=== PATIENT | female | born 1995 | race Caucasian/White ===

== ENCOUNTER 2017-03-03 13:39 | Emergency (ER) | payer OTHER ==
[2017-03-03 13:45] VITALS: RESP 16
--- NOTE | 2017-03-03 14:02 | EDPHY ---
H & P Time Seen by Provider: 03/03/17 14:01 HPI/ROS: Chief complaint. Abdominal pain HPI. 21-year-old female presents emergency department the with low abdominal pain. She has had increased painful menses for the last 9 months after going off control pills approximately 1 and half years ago. She has had 2 3 weeks of low abdominal cramping. Her menses started today with increased pain. Normal vaginal bleeding for her 1st day of menstrual. No fever or vomiting. Possible urinary symptoms. Scheduled for pelvic ultrasound next week ROS Constitutional. no fever/chills, no weakness Eyes. no problems with vision ENT. no sore throat, no nasal drainage Cardiovascular. no chest pain Respiratory. no shortness of breath, no cough Abdominal. Crampy low abdominal pain. . Possible urinary tract infection symptoms MS. no calf pain/swelling, no neck/back pain, no joint pain Skin. no rash Lymph. no swollen glands Neuro. no headache, no dizziness, no difficulty walking or with speech Past Medical/Surgical History: For migraines Social History: Single, nonsmoker, no alcohol Smoking Status: Never smoked Physical Exam: General Appearance: Alert well-developed female mild distress vital signs are stable Eyes: Pupils equal and round no pallor or injection. ENT, Mouth: Mucous membranes are moist. Respiratory: There are no retractions, lungs are clear to auscultation. Cardiovascular: Regular rate and rhythm. Gastrointestinal: Abdomen is soft with diffuse and bilateral tenderness in the suprapubic and adnexal area. No pain at McBurney's point. No masses. No organomegaly Neurological: Awake and alert, sensory and motor exams grossly normal. Skin: Warm and dry, no rashes. Musculoskeletal: Neck is supple nontender. Extremities symmetrical, full range of motion. Psychiatric: Patient is oriented X 3, there is no agitation. Constitutional: Initial Vital Signs Temperature (C) 37.0 C 03/03/17 13:42 Heart Rate 67 03/03/17 13:42 Respiratory Rate 16 03/03/17 13:42 Blood Pressure 114/73 03/03/17 13:42 O2 Sat (%) 100 03/03/17 13:42 O2 Delivery Mode Room Air Allergies/Adverse Reactions: penicillin G Allergy (Verified 03/03/17 13:41) Home Medications: Medication Instructions Recorded Hydrocodone/APAP 5/325 [[place] 1 each PO Q4-6PRN PRN #14 tab 03/03/17 5/325 (*)] Medical Decision Making - Diagnostics Imaging Results: Imaging Impressions Pelvic/Renal Ultrasound 03/03/17 14:12 Impression: 1. Small cystic areas within the endometrial stripe in the lower uterine segment to cervix that could be related to small polyps versus possibility of endometrial hyperplasia along with adjacent nabothian cyst. 2. Normal-appearing ovaries. Pelvic ultrasound essentially normal. Reviewed by me and discussed with Dr. Hernandez. Above findings of a small cystic areas of unclear significance Procedures: IV normal saline. Fentanyl and Toradol for discomfort ED Course/Re-evaluation: Re-evaluation 5:00 p.m.. Patient and I discussed imaging and lab results. We discussed treatment plan including criteria for return importance of follow-up further evaluation. She expresses understanding and agreement Patient is stable and feeling better Differential Diagnosis: I considered , ovarian cyst, endometriosis, urinary tract infection - Data Points Laboratory Results: Laboratory Results 03/03/17 14:30 03/03/17 14:30 03/03/17 03/03/17 03/03/17 15:06 14:30 14:30 WBC RBC Hgb Hct MCV MCH MCHC RDW Plt Count MPV Neut % (Auto) Lymph % (Auto) [place] % (Auto) Eos % (Auto) Baso % (Auto) Nucleat RBC Rel Count Absolute Neuts (auto) Absolute Lymphs (auto) Absolute Monos (auto) Absolute Eos (auto) Absolute Basos (auto) Absolute Nucleated RBC Immature Gran % Immature Gran # Sodium 143 mEq/L mEq/L (135-145) Potassium 3.8 mEq/L mEq/L (3.5-5.2) Chloride 105 mEq/L mEq/L (97-110) Carbon Dioxide 26 mEq/l mEq/l (22-31) Anion Gap 12 mEq/L mEq/L (8-16) BUN 13 mg/dL mg/dL (7-23) Creatinine 0.7 mg/dL mg/dL (0.6-1.0) Estimated GFR > 60 Glucose 95 mg/dL mg/dL (70-100) Calcium 9.5 mg/dL mg/dL (8.5-10.4) Beta HCG, Qual NEGATIVE Urine Color YELLOW Urine Appearance CLEAR Urine pH 6.0 (5.0-7.5) Ur Specific [place] 1.019 (1.002-1.030) Urine Protein NEGATIVE (NEGATIVE) Urine Ketones TRACE H (NEGATIVE) Urine Blood 2+ H (NEGATIVE) Urine Nitrate NEGATIVE (NEGATIVE) Urine Bilirubin NEGATIVE (NEGATIVE) Urine Urobilinogen NEGATIVE EU EU (0.2-1.0) Ur Leukocyte Esterase NEGATIVE (NEGATIVE) Urine RBC 1-3 /hpf /hpf (0-3) Urine WBC 1-3 /hpf /hpf (0-3) Ur Epithelial Cells TRACE /lpf /lpf (NONE-1+) Urine Mucus TRACE /lpf /lpf (NONE-1+) Urine Glucose NEGATIVE (NEGATIVE) 03/03/17 14:30 WBC 9.41 10^3/uL 10^3/uL (3.80-9.50) RBC 4.29 10^6/uL 10^6/uL (4.18-5.33) Hgb 13.9 g/dL g/dL (12.6-16.3) Hct 41.0 % % (38.0-47.0) MCV 95.6 fL fL (81.5-99.8) MCH 32.4 pg pg (27.9-34.1) MCHC 33.9 g/dL g/dL (32.4-36.7) RDW 12.3 % % (11.5-15.2) Plt Count 286 10^3/uL 10^3/uL (150-400) MPV 9.6 fL fL (8.7-11.7) Neut % (Auto) 73.3 % % (39.3-74.2) Lymph % (Auto) 19.4 % % (15.0-45.0) [place] % (Auto) 6.0 % % (4.5-13.0) Eos % (Auto) 0.6 % % (0.6-7.6) Baso % (Auto) 0.3 % % (0.3-1.7) Nucleat RBC Rel Count 0.0 % % (0.0-0.2) Absolute Neuts (auto) 6.89 10^3/uL H 10^3/uL (1.70-6.50) Absolute Lymphs (auto) 1.83 10^3/uL 10^3/uL (1.00-3.00) Absolute Monos (auto) 0.56 10^3/uL 10^3/uL (0.30-0.80) Absolute Eos (auto) 0.06 10^3/uL 10^3/uL (0.03-0.40) Absolute Basos (auto) 0.03 10^3/uL 10^3/uL (0.02-0.10) Absolute Nucleated RBC 0.00 10^3/uL 10^3/uL (0-0.01) Immature Gran % 0.4 % % (0.0-1.1) Immature Gran # 0.04 10^3/uL 10^3/uL (0.00-0.10) Sodium Potassium Chloride Carbon Dioxide Anion Gap BUN Creatinine Estimated GFR Glucose Calcium Beta HCG, Qual Urine Color Urine Appearance Urine pH Ur Specific [place] Urine Protein Urine Ketones Urine Blood Urine Nitrate Urine Bilirubin Urine Urobilinogen Ur Leukocyte Esterase Urine RBC Urine WBC Ur Epithelial Cells Urine Mucus Urine Glucose Medications Given: Discontinued Medications Fentanyl (Sublimaze) 50 mcg IVP EDNOW ONE Stop: 03/03/17 14:12 Last Admin: 03/03/17 14:30 Dose: 50 mcg Sodium Chloride (Ns) 1,000 mls @ 0 mls/hr IV EDNOW ONE; Wide Open PRN Reason: Protocol Stop: 03/03/17 14:12 Last Admin: 03/03/17 14:30 Dose: 1,000 mls Ketorolac Tromethamine (Toradol) 30 mg IVP EDNOW ONE Stop: 03/03/17 14:12 Last Admin: 03/03/17 14:30 Dose: 30 mg Departure - Departure Disposition: Home, Routine, Self-Care Clinical Impression: Dysmenorrhea Condition: Good Instructions: Dysmenorrhea (ED) Additional Instructions: For abdominal pain use ibuprofen 600 mg every 6 hr. Hydrocodone in addition if necessary. Return for worsening symptoms. Follow up with your regular healthcare provider for further evaluation. 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
[2017-03-03] MEDS ORDERED: NS 1,000 ML IV ONE (14:11)
[2017-03-03] MEDS ORDERED: fentaNYL 100 MCG/2 ML INJ IVP ONE (14:11)
[2017-03-03] MEDS ORDERED: KETOROLAC 30 MG/1 ML SDV IVP ONE (14:11)
[2017-03-03 14:37] LABS: PLATELET COUNT 286 10^3/uL (150-400)
[2017-03-03 15:38] VITALS: O2SAT 97
[2017-03-03 17:12] VITALS: BP 101/63; PULSE 86; TEMP 97.9
== END 2017-03-03 17:25 | disposition home or self-care (01) ==
DX: N94.6 Dysmenorrhea, unspecified (principal); E86.9 Volume depletion, unspecified
CPT/HCPCS: 96374; J1885; J3010